=== PATIENT | female | born 1990 | race Caucasian/White ===

== ENCOUNTER 2020-01-01 05:34 | Inpatient (IN) ==
[2020-01-01] MEDS ORDERED: LACTATED RINGER'S 1,000 ML IV SCH (05:45)
[2020-01-01] MEDS ORDERED: CEFAZOLIN 2000MG 2,000 MG/15 ML SYR IV SCH (06:00)
[2020-01-01] MEDS ORDERED: CITRIC ACID/SODIUM CITRATE 15 ML UDC PO SCH (06:00)
[2020-01-01 06:10] LABS: Basophils # (auto) 0.01 K/uL (0-0.2); Basophils % (auto) 0.1 %; Eosinophils # (auto) 0.09 K/uL (0-0.5); Eosinophils % (auto) 0.7 %; Hemoglobin 12.2 g/dL (12.0-16.0); Immature Granulocytes # (auto) 0.04 K/uL (0.00-0.02); Immature Granulocytes % (auto) 0.3 %; Lymphocytes # (auto) 2.82 K/uL (1.2-3.4); Lymphocytes % (auto) 23.2 %; Mean Corpuscular Hemoglobin 33.3 pg (25-34); Mean Corpuscular Volume 98.4 fL (80-100); Mean Platelet Volume 9.9 fL (7.4-10.4); Monocytes # (auto) 0.68 K/uL (0.11-0.59); Monocytes % (auto) 5.6 %; Neutrophils # (auto) 8.53 K/uL (1.4-6.5); Neutrophils % (auto) 70.1 %; Platelet Count 294 K/uL (130-400); RDW Coefficient of Variation 13.4 % (11.5-14.5); Red Blood Count 3.66 M/uL (4.2-5.4); White Blood Count 12.17 K/uL (4.8-10.8)
[2020-01-01 06:15] LABS: Mean Corpuscular Hgb Conc 33.9 g/dL (32-36)
[2020-01-01] MEDS ORDERED: OXYTOCIN 10 UNITS/ML VIAL ONE ×2 (06:38→08:19)
[2020-01-01] MEDS ORDERED: MoRPHine SULFATE PF 1 MG/ML 10 ML AMP/VIAL ONE (06:39)
[2020-01-01] MEDS ORDERED: fentaNYL citrate 100 MCG/2 ML VIAL ONE (06:39)
--- NOTE | 2020-01-01 07:18 | Anesthesiology Consultation ---
Date of Service January 01, 2020 Assessment & Plan ASA ASA2 Proposed Anesthesia Anesthesia Type: Spinal Risk / Benefits Reviewed With: PT / POA / Parent / Guardian, Accepts Plan and Informed Consent Obtained History Surgery Operation Date: 01/01/20 07:30 Proposed Procedures p Section; - Chester Gardner MD s Bilateral Post Tubal Ligation - Chester Gardner MD Height/Weight Height: 5 ft 6 in Weight: 80.739 kg Allergies Allergy/AdvReac Type Severity Reaction Status Date / Time No Known Allergies Allergy Mild Verified 01/01/20 06:13 Medications Home Medications Medication Instructions Recorded Confirmed Last Taken no.144-folic acid 1 tab PO QAM 12/18/19 01/01/20 12/31/19 08:30 [] Past Medical History Medical History No known health problems Exercise / Class Metabolic Activity II 4-5 Yardwork/Stairs/Walk up hill Past Family History Family History Father Diabetes Past Surgical History Surgical History History of adenoidectomy History of tonsillectomy Past Anesthesia History No Hx of Anesthesia Complications and No Family Hx of Anesthesia Complications History of PONV No Hx of PONV and No Hx of Motion Sickness Social History Smoking Status: Former smoker tobacco type: cigarettes Smoking cigarettes per day: 1 Do You Dip or Chew Tobacco: No Smoking End Date: FEW MONTHS AGO Hx Alcohol Use: No Hx Substance Use: No substance use type: does not use Review of Systems denies fever/cough/ colds/ chest pain/ SOB/ IRINA Constitutional: no fever and no chills Respiratory: no cough and no dyspnea denies IRINA Cardiovascular: no chest pain and no dyspnea on exertion Physical Exam Vital Signs Last Vital Signs Temp 36.9 C 01/01/20 06:14 Pulse 71 01/01/20 07:03 Resp 18 01/01/20 06:14 BP 124/78 01/01/20 07:03 ENMT Mouth: no TMJ abnormality and no dentition abnormality Thyromental Distance: > or= 3.5 Finger Breadths Mallampati Class: II Neck neck extension not limited Respiratory normal respiratory effort; no respiratory distress Auscultation: lungs clear to auscultation bilaterally Cardiovascular Rate/Rhythm: regular rate and regular rhythm Neurologic moves all extremities Psychiatric Orientation: alert and oriented x 3 Testing Laboratory Results 01/01/20 05:52 Blood Type A Positive 01/01/20 05:52 Antibody Screen NEGATIVE 01/01/20 05:52
--- NOTE | 2020-01-01 07:43 | History & Physical Bridge Note ---
Date of Service January 01, 2020 History & Physical Bridge Note I have examined the patient, reviewed the History & Physical and in the interval since the performance of the History & Physical I have noted the following changes of clinical significance: no changes noted
[2020-01-01] MEDS ORDERED: MoRPHine SULFATE PF 1 MG/ML 10 ML AMP/VIAL INT SPINAL ONE (07:45)
[2020-01-01] MEDS ORDERED: ePHEDrine sulfate 50 MG/ML AMP IV PRN (07:45)
[2020-01-01] MEDS ORDERED: SODIUM CHLORIDE 0.9% 1000ML 1,000 ML IV SCH (07:45)
[2020-01-01] MEDS ORDERED: NALOXONE HCL 0.4 MG/1 ML VIAL/CARP IV PRN (07:45)
[2020-01-01] MEDS ORDERED: NO NARCOTICS OR SEDATIVES SCH (07:45)
[2020-01-01] MEDS ORDERED: PROMETHAZINE HCL 25 MG in SODIUM CHLORIDE 0.9% 50 ML IV PRN ×2 (07:45→09:45)
[2020-01-01] MEDS ORDERED: NALOXONE HCL 1 MG in SODIUM CHLORIDE 0.9% 1000ML 1,000 ML IV PRN (07:45)
[2020-01-01] MEDS ORDERED: DiphenhydrAMINE HCL 50 MG/ML VIAL IV PRN (07:45)
[2020-01-01] MEDS ORDERED: ONDANSETRON INJ 2 MG/ML 2 ML VIAL IV PRN (07:45)
[2020-01-01] MEDS ORDERED: NALOXONE HCL 0.08 MG in SYRINGE 1.8 ML IV PRN (07:45)
[2020-01-01] MEDS ORDERED: LACTATED RINGER'S 500 ML IV PRN (07:45)
[2020-01-01] MEDS ORDERED: DC INTRASPINAL MORPHINE SCH (07:45)
[2020-01-01] MEDS ORDERED: ePHEDrine sulfate 50 MG/ML SYR ONE (08:17)
[2020-01-01] MEDS ORDERED: PHENYLEPHRINE 100MCG/ML 5ML SYR ONE (08:17)
[2020-01-01] MEDS ORDERED: METHYLERGONOVINE MALEATE 0.2 MG/ML AMP ONE (08:34)
[2020-01-01] MEDS ORDERED: ONDANSETRON INJ 2 MG/ML 2 ML VIAL ONE ×2 (08:43→08:59)
[2020-01-01] MEDS ORDERED: HYDROCORTISONE ACETATE 25 MG SUPP PR PRN (09:45)
[2020-01-01] MEDS ORDERED: SENNA 8.6 MG TAB PO PRN (09:45)
[2020-01-01] MEDS ORDERED: DIPHTHERIA/TETANUS/PERTUSSIS 0.5 ML SYR/VIAL IM ONE (09:45)
[2020-01-01] MEDS ORDERED: MAGNESIUM HYDROXIDE SUSP 30 ML UDC PO PRN (09:45)
[2020-01-01] MEDS ORDERED: SUPERCREAM 0.870% 15 GM JAR EXT PRN (09:45)
[2020-01-01] MEDS ORDERED: BENZOCAINE 20% AER SPR 82.5 GM CAN EXT PRN (09:45)
--- NOTE | 2020-01-01 09:50 | Post Operative Brief Note ---
Immediate Post Op Note v1 Date of Surgery January 01, 2020 Pre & Post Diagnosis Operation Date: 01/01/20 07:30 Pre-Op Diagnosis: Breech position and desires tubal ligation. Post-Op Diagnosis: Breech position and desired tubal ligation. I identified the patient and participated in the time-out.: Yes Procedure Operation Date: 01/01/20 07:30 Actual Procedures p Section in LD - Chester Gardner MD Surgeon Chester Gardner MD Paper Machine Back Tender cherri ahmadi Estimated Blood Loss 600 Findings Consistent with Post-Op Diagnosis Drains Sanchez Catheter
[2020-01-01] MEDS: KETOROLAC 30 MG/ML VIAL IV PRN ×2 (09:58→16:02)
[2020-01-01] MEDS ORDERED: OXYTOCIN 10 UNITS/ML VIAL IM ONE ×2 (10:02→10:06)
--- NOTE | 2020-01-01 10:08 | Operative Report (OR) ---
DATE OF OPERATION: 01/01/2020 INDICATION FOR SURGERY: This is a 29-year-old G3, P2 at term, is breech. The patient has opted for section with bilateral tubal ligation. PREOPERATIVE DIAGNOSES: 1. at term. 2. Breech presentation. The patient declined external version. 3. Undesired fertility. The patient wishes to have permanent sterilization. POSTOPERATIVE DIAGNOSES: 1. at term. 2. Breech presentation. The patient declined external version. 3. Undesired fertility. The patient wishes to have permanent sterilization. PROCEDURE: section with bilateral tubal ligation. SURGEON: Chester Gardner MD. CO FOUNDER AND DIRECTOR: PAUL Merchant. ESTIMATED BLOOD LOSS: 600 mL URINE OUTPUT: 300 mL clear urine at the end of the procedure. INTRAVENOUS FLUIDS: 2200 mL ANESTHESIA: Spinal. COMPLICATIONS: None. DRAINS: Sanchez catheter. SPECIMEN: Left and right fallopian tube and placenta. FINDINGS: Live female in danna breech presentation. Uterus, both tubes and ovaries appeared grossly normal. Rest of abdominal exam is unremarkable. DISPOSITION: Stable to recovery room. DESCRIPTION OF PROCEDURE: The patient was taken to the operating room where she was prepped and draped in normal sterile fashion. Timeout was called. A Pfannenstiel incision was made with a scalpel and carried down to the fascia. Fascia was incised in the midline and extended laterally on both sides with Mayos. Rectus abdominis muscle was identified. Peritoneum was identified and entered sharply. Once inside the abdomen, an Cristo retractor was placed for retraction. Vesicouterine peritoneum was sharply dissected off the lower segment of the uterus. Findings of the uterus as dictated above. Scalpel was used to make a low transverse incision on the uterus and extended laterally on both sides with bandage scissors. Infant is in danna breech presentation. Buttocks was delivered followed by torso, arms, and infant's head. There was nuchal cord which was easily reduced. Cord was clamped and cut after 1 minute. The patient's weight and Apgars in the pediatric record. Placenta was manually removed. Uterus was exteriorized and cleared of all clots and debris. Uterus was closed in 2 layers with 0 Vicryl. There was good hemostasis post-closure. Copious amount of irrigation was used to irrigate the abdomen at this point. Attention was paid to the tubal ligation part of the procedure where both the left and right fallopian tubes were identified. The mesosalpinx was identified with tubes as well. Modified Wilcox tubal ligation was performed where the tube was transected and sent to pathology for pathological analysis. There was good hemostasis post-tubal ligation on both sides. Uterus was returned into the abdominal cavity. Copious amount of irrigation was used to irrigate the abdomen again. The vesicouterine peritoneum was approximated using plain suture. Peritoneum was closed using plain suture as well. Muscle was loosely approximated using [id number] and plain suture. There was good hemostasis once again. Fascia was closed in a running fashion with Vicryl. SubQ space was irrigated and plain suture was used to approximate the subQ space. Skin was closed with 4-0 Monocryl. All instruments were removed from the abdomen including sponges, retractors and needles and accounted for x2. The patient is sent to recovery in stable condition. I attest to the content of the Intraoperative Record and any orders documented therein. Any exception s are noted below.
[2020-01-01] MEDS: MoRPHine SULFATE 2 MG/ML CARP IV PRN ×2 (10:30→18:52)
--- NOTE | 2020-01-01 10:34 | Anesthesiology Progress Note ---
Date of Service January 01, 2020 Anesthesia Post Procedure Vital Signs Vital Signs: Temp Pulse Resp BP Pulse Ox 01/01/20 10:32 78 119/60 01/01/20 10:28 78 100 01/01/20 10:23 72 100 01/01/20 10:21 75 130/62 01/01/20 10:18 71 100 01/01/20 10:13 70 100 01/01/20 10:11 72 138/66 01/01/20 10:08 82 100 01/01/20 10:03 73 100 01/01/20 10:00 70 124/56 L 01/01/20 09:58 74 100 01/01/20 09:53 79 100 01/01/20 09:51 76 138/65 01/01/20 09:50 24 01/01/20 09:48 81 100 01/01/20 09:43 70 100 01/01/20 09:40 81 131/72 01/01/20 08:40 36.3 C L 24 01/01/20 07:03 71 124/78 01/01/20 06:14 36.9 C 86 18 117/78 01/01/20 05:47 36.9 C 86 18 117/78 Pain Intensity Lower Abdomen: Pain Intensity: 8 Transfer of Care Handoff Completed per policy Notes Mental Status: alert / awake / arousable and participated in evaluation Patient Amnestic to Procedure: Yes Nausea / Vomiting: adequately controlled Pain: adequately controlled Airway Patency, RR, SpO2: stable & adequate BP & HR: stable & adequate Hydration State: stable & adequate Anesthetic Complications: no major complications apparent and Pt Satisfied with anesthetic care
[2020-01-01] MEDS ORDERED: HYDROmorphone INJ 0.5 MG/0.5 ML SYR IV PRN (10:51)
[2020-01-01] MEDS ORDERED: ACETAMINOPHEN 1,000 MG/100 ML VIAL IV STA (10:51)
[2020-01-01] MEDS ORDERED: OXYTOCIN 20 UNITS in LACTATED RINGER'S 1,000 ML IV SCH (11:45)
[2020-01-01] MEDS: LACTATED RINGER'S 1,000 ML IV SCH ×2 (12:29→20:47)
[2020-01-01] MEDS: SIMETHICONE 80 MG CHEW PO SCH ×3 (12:40→20:47)
[2020-01-01] MEDS: DOCUSATE SODIUM 100 MG CAP PO SCH (20:47)
[2020-01-02] MEDS: KETOROLAC 30 MG/ML VIAL IV PRN (00:18)
[2020-01-02] MEDS ORDERED: ONDANSETRON INJ 2 MG/ML 2 ML VIAL IV PRN (01:46)
[2020-01-02] MEDS ORDERED: DiphenhydrAMINE HCL 50 MG/ML VIAL IV PRN (01:46)
[2020-01-02] MEDS ORDERED: ZOLPIDEM TARTRATE 5 MG TAB PO PRN (01:46)
[2020-01-02] MEDS: OXYCODONE/ACETAMINOPHEN 5mg/325mg TAB PO PRN ×6 (02:47→23:18)
[2020-01-02 06:21] LABS: Basophils # (auto) 0.01 K/uL (0-0.2); Basophils % (auto) 0.1 %; Eosinophils # (auto) 0.05 K/uL (0-0.5); Eosinophils % (auto) 0.4 %; Hematocrit (blood only) 24.5 % (37-47); Hemoglobin 8.5 g/dL (12.0-16.0); Immature Granulocytes # (auto) 0.04 K/uL (0.00-0.02); Immature Granulocytes % (auto) 0.3 %; Lymphocytes % (auto) 17.2 %; Mean Corpuscular Hgb Conc 34.7 g/dL (32-36); Mean Platelet Volume 9.8 fL (7.4-10.4); Monocytes # (auto) 0.66 K/uL (0.11-0.59); Monocytes % (auto) 5.7 %; Neutrophils # (auto) 8.85 K/uL (1.4-6.5); Neutrophils % (auto) 76.3 %; Platelet Count 239 K/uL (130-400); RDW Coefficient of Variation 13.4 % (11.5-14.5); RDW Standard Deviation 48.1 fL (36.4-46.3); White Blood Count 11.61 K/uL (4.8-10.8)
[2020-01-02] MEDS: IBUPROFEN 600 MG TAB PO PRN ×5 (06:36→23:18)
[2020-01-02] MEDS: PRENATAL VITAMIN 1 TAB PO SCH (08:50)
[2020-01-02] MEDS: DOCUSATE SODIUM 100 MG CAP PO SCH ×2 (08:50→19:36)
[2020-01-02] MEDS: SIMETHICONE 80 MG CHEW PO SCH ×4 (08:50→19:38)
[2020-01-02] MEDS: FERROUS SULFATE 325 MG TAB PO SCH (08:50)
--- NOTE | 2020-01-02 10:56 | Surgery Progress Note ---
Date of Service January 02, 2020 Assessment & Plan Admission and Anticipated Discharge Date Admission Date: January 01, 2020 Subjective POD#1 doing well some pain passing gas out of bed tolerating diet Physical Exam Constitutional: WD/WN, vitals as above comfortable abdomen is soft and non-tender incision c/d/i no edema neg Marylin's Results & Data ([facility]) Vital Signs (Past 12 Hours) Vital Signs Temp Pulse Resp BP Pulse Ox 01/02/20 07:50 37 C 76 18 108/75 99 01/02/20 03:00 36.7 C 69 20 119/72 100 01/02/20 01:15 20 98 01/02/20 00:00 36.6 C 73 18 107/64 99 01/01/20 23:15 18 98 Laboratory Results 01/01/20 01/01/20 01/02/20 05:52 05:52 06:02 WBC 12.17 H 11.61 H RBC 3.66 L 2.50 L Hgb 12.2 8.5 L D Hct 36.0 L 24.5 L MCV 98.4 98.0 MCH 33.3 34.0 MCHC 33.9 34.7 RDW Std Deviation 48.0 H 48.1 H RDW Coeff of Vladimir 13.4 13.4 Plt Count 294 239 MPV 9.9 9.8 Immature Gran % (Auto) 0.3 0.3 Neut % (Auto) 70.1 76.3 Lymph % (Auto) 23.2 17.2 [place] % (Auto) 5.6 5.7 Eos % (Auto) 0.7 0.4 Baso % (Auto) 0.1 0.1 Neut # (Auto) 8.53 H 8.85 H Lymph # (Auto) 2.82 2.00 [place] # (Auto) 0.68 H 0.66 H Eos # (Auto) 0.09 0.05 Baso # (Auto) 0.01 0.01 Immature Gran # (Auto) 0.04 H 0.04 H Blood Type A Positive Antibody Screen NEGATIVE
[2020-01-02] MEDS ORDERED: bisacodyL 5 MG TABEC PO SCH (20:00)
[2020-01-03] MEDS: OXYCODONE/ACETAMINOPHEN 5mg/325mg TAB PO PRN ×3 (03:51→11:17)
[2020-01-03] MEDS: IBUPROFEN 600 MG TAB PO PRN ×3 (03:51→11:18)
[2020-01-03 06:13] LABS: Basophils # (auto) 0.03 K/uL (0-0.2); Basophils % (auto) 0.3 %; Eosinophils # (auto) 0.17 K/uL (0-0.5); Eosinophils % (auto) 1.6 %; Hematocrit (blood only) 24.1 % (37-47); Hemoglobin 8.2 g/dL (12.0-16.0); Immature Granulocytes # (auto) 0.03 K/uL (0.00-0.02); Immature Granulocytes % (auto) 0.3 %; Lymphocytes # (auto) 3.05 K/uL (1.2-3.4); Lymphocytes % (auto) 28.3 %; Mean Corpuscular Hemoglobin 33.7 pg (25-34); Mean Corpuscular Volume 99.2 fL (80-100); Mean Platelet Volume 9.7 fL (7.4-10.4); Monocytes # (auto) 0.71 K/uL (0.11-0.59); Monocytes % (auto) 6.6 %; Neutrophils # (auto) 6.78 K/uL (1.4-6.5); Neutrophils % (auto) 62.9 %; Platelet Count 247 K/uL (130-400); RDW Coefficient of Variation 13.7 % (11.5-14.5); Red Blood Count 2.43 M/uL (4.2-5.4); White Blood Count 10.77 K/uL (4.8-10.8)
[2020-01-03] MEDS: SIMETHICONE 80 MG CHEW PO SCH (07:52)
[2020-01-03] MEDS: DOCUSATE SODIUM 100 MG CAP PO SCH (07:52)
[2020-01-03] MEDS: FERROUS SULFATE 325 MG TAB PO SCH (07:52)
[2020-01-03] MEDS: PRENATAL VITAMIN 1 TAB PO SCH (07:52)
[2020-01-03] MEDS ORDERED: bisacodyL 10 MG SUPP PR PRN (09:45)
--- NOTE | 2020-01-03 10:56 | Surgery Progress Note ---
Date of Service January 03, 2020 Assessment & Plan Admission and Anticipated Discharge Date Admission Date: January 01, 2020 Subjective POD#2 doing well passing gas tolerating diet out of bed Physical Exam Constitutional: WD/WN, vitals as above comfortable incision c/d/i abdomen is soft non-tender no edema neg Marylin's plans for d/c today follow up in 1 week in office Results & Data ([facility]) Vital Signs (Past 12 Hours) Vital Signs Temp Pulse Resp BP Pulse Ox 01/03/20 09:56 36.6 C 74 18 120/78 97 01/03/20 07:50 36.6 C 74 18 120/78 97 01/02/20 23:20 36.5 C 72 18 134/81 99 Laboratory Results Laboratory Results - last 48 hr 01/02/20 01/03/20 06:02 05:54 WBC 11.61 H 10.77 RBC 2.50 L 2.43 L Hgb 8.5 L D 8.2 L Hct 24.5 L 24.1 L MCV 98.0 99.2 MCH 34.0 33.7 MCHC 34.7 34.0 RDW Std Deviation 48.1 H 49.0 H RDW Coeff of Vladimir 13.4 13.7 Plt Count 239 247 MPV 9.8 9.7 Immature Gran % (Auto) 0.3 0.3 Neut % (Auto) 76.3 62.9 Lymph % (Auto) 17.2 28.3 [place] % (Auto) 5.7 6.6 Eos % (Auto) 0.4 1.6 Baso % (Auto) 0.1 0.3 Neut # (Auto) 8.85 H 6.78 H Lymph # (Auto) 2.00 3.05 [place] # (Auto) 0.66 H 0.71 H Eos # (Auto) 0.05 0.17 Baso # (Auto) 0.01 0.03 Immature Gran # (Auto) 0.04 H 0.03 H
== END 2020-01-03 11:50 | disposition home or self-care (01) | DRG 785 ==
LOC: 4S1 05:34 → EDSTATUS 07:30 → 4S2 12:10

== ENCOUNTER 2025-02-22 10:14 | Observation (INO) ==
--- NOTE | 2025-02-08 13:42 | Anesthesiology Consultation ---
Date of Service February 08, 2025 Assessment & Plan (1) Encounter for pre-operative examination: Chart Review Chart Review: Acceptable Risk for Surgery and Patient NOT seen in Pre Admission Testing Infectious Disease screening: Per PAT nursing assessment on 02/08/25, No known infectious disease contacts in past 10 days. No recent travel outside the country. Pt states that she has 'bad allergies right now and nasal congestion all year round' but that allergy sx (rhinitis) worse right now. Pt was educated that if her sx worsen or she develops more symptoms, she is to contact [facility]. Surgery is >10days away therefore no further w/u necessary at this time. History Surgery Operation Date: 02/22/25 10:20 Proposed Procedures p Total Abdominal Hysterectomy, Preservation of Ovaries - Alexandre Wolf MD Height/Weight Height: 5 ft 6.75 in Weight: 68.039 kg Allergies Allergy/AdvReac Type Severity Reaction Status Date / Time No Known Allergies Allergy Mild Verified 02/08/25 12:37 Medications Home Medications Medication Instructions Recorded Confirmed Last Taken acetaminophen 500 mg tablet 500 - 1,500 mg PO UD PRN Pain 02/08/25 02/08/25 Un known (Tylenol Extra Strength) cetirizine 10 mg tablet 10 mg PO QAM PRN allergies 02/08/25 02/08/25 Unknown fluticasone propionate 50 1 spray intranasal UD PRN allergies 02/08/25 02/08/25 Unknown mcg/actuation nasal spray,suspension Past Medical History Medical History (Updated 02/08/25 @ 13:56 by Radha Berger PA-C) Herpes hx of HSV1, HSV2; 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; 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 History of anesthesia reaction per pt, 'feels grumpy and frustrated after'; pt also states itchy and nausea/vomiting after c/s' (no notes regarding itching or PONV after c/s per chart review) PONV (postoperative nausea and vomiting) Seasonal allergies Past Family History Family History Father Diabetes Brother Diabetes Other No family history of adverse response to anesthesia Past Surgical History Surgical History History of (2019) History of tonsillectomy and adenoidectomy Social History Smoking Status: Former smoker tobacco type: cigarettes Smoking cigarettes per day: denies tobacco use within last 30 days Do You Dip or Chew Tobacco: No Smoking End Date: hx vape, quit dec 2024/, hx cigarettes quit in 02/2024 Hx Alcohol Use: No alcohol intake frequency: holidays/special occasions only Hx Substance Use: No substance use type: does not use
[~2025-02-22 10:14] MED LIST: ACETAMINOPHEN 1000 MG/100 ML IV IV ONE; DEXAMETHASONE SOD INJ 4 MG/ML VIAL ONE; LIDOCAINE 2% 2 ML VIAL/AMP(20MG/ML) INFIL ONE; MIDAZOLAM HCL 1 MG/ML 2ML VIAL ONE; ONDANSETRON INJ 2 MG/ML 2 ML VIAL ONE; PROPOFOL IV EMULSION 10 MG/ML 20 ML VIAL IV ONE; ROCURONIUM BROMIDE 10 MG/ML 5 ML VIAL IV ONE
[2025-02-22 10:35] LABS: Hematocrit (blood only) 38.8 % (37.0-47.0); Hemoglobin 13.5 g/dl (12.0-16.0); Immature Granulocytes # (auto) 0.00 K/uL (0.01-0.20); Immature Granulocytes % (auto) 0.0 %; Mean Corpuscular Hemoglobin 33.2 pg (25.0-34.0); Mean Corpuscular Volume 95.3 fL (80.0-100.0); Platelet Count 225 K/uL (130-400); RDW Standard Deviation 42.8 fL (36.4-46.3); Red Blood Count 4.07 M/uL (4.20-5.40); White Blood Count 4.23 K/ul (4.8-10.8)
[2025-02-22] MEDS: LR 15ML/HR IV SCH (10:47)
[2025-02-22] MEDS ORDERED: MoRPHine SULFATE PF 1 MG/ML 10 ML AMP/VIAL ONE (12:22)
[2025-02-22] MEDS ORDERED: BUPIVACAINE 0.25% PF 30 ML VIAL ONE (12:23)
--- NOTE | 2025-02-22 12:26 | History & Physical Bridge Note ---
Date of Service February 22, 2025 History & Physical Bridge Note I have examined the patient, reviewed the History & Physical and in the interval since the performance of the History & Physical I have noted the following changes of clinical significance: no changes noted
[2025-02-22] MEDS ORDERED: SCOPOLAMINE 1 MG/72 HR TDSY PATCH TD ONE (12:31)
[2025-02-22] MEDS ORDERED: KETAMINE HCL 10MG/ML SYR ONE (12:50)
[2025-02-22] MEDS ORDERED: HYDROmorphone INJ 2 MG/ML SYR/VIAL ONE (12:50)
[2025-02-22] MEDS ORDERED: ROCURONIUM BROMIDE 10 MG/ML 5 ML VIAL IV ONE (13:13)
[2025-02-22] MEDS ORDERED: DROPERIDOL 5 MG/2 ML VIAL ONE (14:06)
[2025-02-22] MEDS ORDERED: SUGAMMADEX SODIUM 200 MG/2 ML VIAL IV ONE (14:27)
--- NOTE | 2025-02-22 14:58 | Operative Report ---
Post Operative Report Pre & Post Diagnosis Operation Date: 02/22/25 11:50 Pre-Op Diagnosis: Adenomyosis, Pelvic Pain, Dyspareunia, Menorrhagia Post-Op Diagnosis: Adenomyosis, Pelvic Pain, Dyspareunia, Menorrhagia I identified the patient and participated in the time-out.: Yes Procedure Operation Date: 02/22/25 11:50 Actual Procedures p Total Abdominal Hysterectomy, Preservation of Ovaries - Alexandre Wolf MD Surgeon Alexandre Wolf MD Woods Manager Tiffany Bryant Estimated Blood Loss 50 Findings Consistent with Post-Op Diagnosis Retroverted uterus Status post bilateral partial salpingectomy Specimens Uterus and cervix Drains [place] drain with safety pin and vaginal cuff Anesthesia Type General Complications None Indications Pelvic pain irregular vaginal bleeding Description of Procedure Patient was brought to the operating room correctly identified by armband conversation. Patient was positioned on the operating table. Perineum and vagina were painted with Betadine paint. A Sanchez catheter was inserted aseptically. Compression stockings were applied. Suprapubic area and lower abdomen pain-out of a sterilizing solution. Patient was draped in usual sterile fashion. Pfannenstiel incision was made in the previous scar. Incision was carried down to the fascia by blunt and sharp dissection. Fascia was incised bilaterally from the underlying muscle by blunt and sharp dissection. Peritoneum was raised and carefully. An O'Venu-O'Palafox self-retaining retractor was inserted into the incision 3 laparotomy pads were used to retract the intestines provide adequate exposure of the pelvic cavity. At this time acutely retroverted uterus top normal size was noted. Both tubes are status post partial salpingectomy fundus of uterus was grasped with a double-tooth tenaculum. The round ligaments were clamped with a Juanis close to the uterus. They were then suture-ligated distally with a transfixion suture and a silk tie. They were then cut free from the uterine body. An incision was made above the vesicouterine fold. The bladder was dissected off the cervix and pushed out of the operative field. Posterior leaf of the broad ligament were punched through the finger on both sides. The ovarian ligament and tube were Clamped proximally and distally cut between and then the distal portion was tagged with a transfixion suture chromic and then a silk tie. Uterine vessels were skeletonized doubly clamped with curved Daniela's. Cut with a knife and then doubly ligated with a Chromic Gut suture. The bladder was advanced on the operative field. The cardinal ligaments were cut by sliding off the cervix cutting with a stump and then using a Chromic Gut suture to suture the stumps of the cardinal ligaments this was done in 2 steps because of the length of the cardinal ligaments. Uterosacral ligaments were clamped and tied separately. Cervix was then shelled out with electrocautery. Angles of the vaginal cuff were suture-ligated to the stumps of the cardinal ligaments on both the right and left side. Then a cuff clamp was used to grasp the edges of the cuff and a [id number] suture which was anchored laterally the cardinal ligaments and suture went into the center of the vaginal cuff approximated the vaginal mucosa front to back. This was done on the right and left side. The vaginal mucosa was then whipstitched open with a continuous Chromic Gut suture. Posteriorly the uterosacral ligaments were approximated with interrupted [id number] suture of heavy Vicryl. Silvio drain with a safety plan was placed into the vaginal cuff. The round ligaments were brought down and tied into the stumps of the cardinal ligaments for support of the cuff. Then reperitonealization was accomplished with a 3-0 chromic. And this tagged the ovaries on the outer pelvic wall and out of the cul-de-sac and approximated the peritoneum covering up the proximated vaginal cuff following this hemostasis was good the pelvis was washed cleaned there was no bleeding. Packs were removed and O'Venu- O'Palafox was removed. Careful anatomical approximation of the anterior abdominal wall was performed peritoneum was closed with continuous Chromic Gut suture. Recti muscles approximate interrupted [id number] suture chromic catgut. The fascia was approximated from the right side to the midline from the left side to the middle and tied. Subcu was approximated with running plain the skin edge approximated with staple clips patient Toller procedure well if you are good condition Dr. Wolf dictated. I attest to the content of the Intraoperative Record and any orders documented therein. Any exceptions are noted below. Woods Manager was necessary for exposure in order to provide safe surgery in this patient.
[2025-02-22] MEDS ORDERED: MEPERIDINE HCL 25 MG/ML CARP/VIAL IV PRN (15:04)
[2025-02-22] MEDS ORDERED: MAGNESIUM HYDROXIDE SUSP 30 ML UDC PO PRN (15:04)
[2025-02-22] MEDS ORDERED: FLUMAZENIL 0.1 MG/1 ML 10 ML VIAL IV PRN (15:14)
[2025-02-22] MEDS ORDERED: PROMETHAZINE HCL 6.25 MG in SODIUM CHLORIDE 0.9% 50 ML IV PRN (15:14)
[2025-02-22] MEDS ORDERED: NALOXONE HCL 0.4 MG/1 ML VIAL/CARP IV PRN (15:14)
[2025-02-22] MEDS ORDERED: ATROPINE SULFATE 0.1 MG/ML 10ML SYR IV PRN (15:14)
[2025-02-22] MEDS: HYDROmorphone INJ 2 MG/ML SYR/VIAL IV PRN (15:15)
[2025-02-22] MEDS: ONDANSETRON INJ 2 MG/ML 2 ML VIAL ONE (15:16)
[2025-02-22] MEDS: ONDANSETRON INJ 2 MG/ML 2 ML VIAL IV PRN (15:16)
[2025-02-22] MEDS: HYDROmorphone INJ 2 MG/ML SYR/VIAL ONE (15:17)
--- NOTE | 2025-02-22 15:44 | Anesthesiology Progress Note ---
Date of Service February 22, 2025 Anesthesia Post Procedure Vital Signs Vital Signs: Temp Pulse Pulse Resp BP Pulse Ox O2 Del Method 02/22/25 15:35 57 L 13 140/78 100 Oxymask 02/22/25 15:25 60 14 135/79 100 Oxymask 02/22/25 15:15 59 L 14 147/87 H 100 Oxymask 02/22/25 15:05 67 22 130/81 100 Oxymask 02/22/25 14:57 36.1 C L 65 18 151/84 H 100 Oxymask 02/22/25 10:35 36.8 C 60 18 112/73 99 Room Air O2 Flow Rate 02/22/25 15:35 4 02/22/25 15:25 4 02/22/25 15:15 4 02/22/25 15:05 4 02/22/25 14:57 4 02/22/25 10:35 Pain Intensity Abdomen: Pain Intensity: 9 Transfer of Care Handoff Completed per policy Notes Mental Status: alert / awake / arousable Patient Amnestic to Procedure: Yes Nausea / Vomiting: adequately controlled Pain: adequately controlled Airway Patency, RR, SpO2: stable & adequate BP & HR: stable & adequate Hydration State: stable & adequate Anesthetic Complications: no major complications apparent
[2025-02-22] MEDS: LACTATED RINGER'S 1,000 ML IV SCH (17:35)
[2025-02-22] MEDS: KETOROLAC 30 MG/ML VIAL IV PRN (19:44)
[2025-02-22] MEDS: IBUPROFEN 600 MG TAB PO PRN (21:59)
[2025-02-22] MEDS: PROMETHAZINE 25 MG/51 ML BAG IV PRN (23:57)
[2025-02-23] MEDS: ACETAMINOPHEN 325 MG TAB PO PRN (03:13)
[2025-02-23 08:04] LABS: Hematocrit (blood only) 33.6 % (37.0-47.0); Hemoglobin 12.0 g/dl (12.0-16.0); Immature Granulocytes # (auto) 0.06 K/uL (0.01-0.20); Immature Granulocytes % (auto) 0.4 %; Mean Corpuscular Hemoglobin 33.4 pg (25.0-34.0); Mean Corpuscular Volume 93.6 fL (80.0-100.0); Platelet Count 202 K/uL (130-400); RDW Standard Deviation 42.0 fL (36.4-46.3); Red Blood Count 3.59 M/uL (4.20-5.40); White Blood Count 15.42 K/ul (4.8-10.8)
--- NOTE | 2025-02-23 09:43 | Obstetrical Progress Note ---
Date of Service February 23, 2025 Assessment & Plan Admission and Anticipated Discharge Date Admission Date: February 22, 2025 Subjective abdomen soft and non tender bandage removed incision is clean and dry bowel sounds present and normal urine clear out put good vaginal bleeding scant hgb 12.0 Results & Data Vital Signs (Past 12 Hours) Vital Signs Temp Pulse Resp BP Pulse Ox O2 Del Method 02/23/25 08:05 Room Air 02/23/25 08:05 37 C 56 L 18 126/76 99 Room Air 02/23/25 02:20 36.9 C 69 16 135/74 97 Room Air 02/22/25 23:45 36.8 C 61 18 138/67 97 Room Air
[2025-02-23 21:23] VITALS: O2SAT 98
[2025-02-24] MEDS: SENNA 8.6 MG TAB PO PRN (03:33)
[2025-02-24 07:53] LABS: Hematocrit (blood only) 36.6 % (37.0-47.0); Hemoglobin 12.2 g/dl (12.0-16.0); Immature Granulocytes # (auto) 0.02 K/uL (0.01-0.20); Immature Granulocytes % (auto) 0.3 %; Mean Corpuscular Hemoglobin 32.7 pg (25.0-34.0); Mean Corpuscular Volume 98.1 fL (80.0-100.0); Platelet Count 198 K/uL (130-400); RDW Standard Deviation 45.0 fL (36.4-46.3); Red Blood Count 3.73 M/uL (4.20-5.40); White Blood Count 7.04 K/ul (4.8-10.8)
[2025-02-24 08:55] VITALS: PULSE 68; RESP 16; TEMP 97.9
[2025-02-24 09:37] VITALS: BP 138/88
--- NOTE | 2025-02-24 10:38 | Obstetrical Progress Note ---
Date of Service February 24, 2025 Assessment & Plan Admission and Anticipated Discharge Date Admission Date: February 22, 2025 Subjective Abdomen soft and nontender Incision clean and dry Passing gas Silvio drain removed Vaginal bleeding scant Hemoglobin 12.2 No calf tenderness Ambulating well Pain is well-controlled Results & Data Vital Signs (Past 12 Hours) Vital Signs Temp Pulse Pulse Resp BP BP Pulse Ox 02/24/25 09:34 36.6 C 68 68 16 124/85 138/88 98 02/24/25 08:00 36.6 C 68 16 124/85 98 02/23/25 22:50 37.2 C 66 20 132/84 O2 Del Method 02/24/25 09:34 02/24/25 08:00 Room Air 02/23/25 22:50 Room Air
--- NOTE | 2025-02-24 10:40 | Discharge Summary ---
Date of Service February 24, 2025 Admission HPI Per Admitting Provider Patient is a 34-year-old admitted with symptoms of pelvic pain irregular vaginal bleeding. She also has symptoms of dyspareunia. She has bleeding about 12 days a month. Bleeding is heavy at times. She also has worsening pelvic pain. Particularly with intercourse and deep penetration. They have admission she was taken to the OR where she underwent total abdominal hysterectomy with preservation of both ovaries suspension of the vaginal cuff. At that time a acutely retroverted uterus was noted along with lack of support of the uterus. Postoperatively she did well. She remained afebrile. [place] drain fell out on the first postoperative day. On the second postoperative day she was ambulating well eating well. Passing gas. Pain was well-controlled. Her hemoglobin was 12.2. She was given the usual postop instructions and discharged. Discharge Data Procedures Performed Operation Date: 02/22/25 11:50 Actual Procedures p Total Abdominal Hysterectomy, Preservation of Ovaries - Alexandre Wolf MD
== END 2025-02-24 11:05 | disposition home or self-care (01) | DRG 743 ==
LOC: ASU 10:14 → MERGE 10:20 → INTOOBSV 15:04 → 4E1 15:04